=== PATIENT | male | born 1995 | race Caucasian/White ===

== ENCOUNTER 2019-04-10 12:26 | Emergency (ER) | payer OTHER ==
[~2019-04-10] VITALS: Ht 175.3 cm; Wt 95.4 kg
[2019-04-10 13:26] LABS: BASO # 0.1 10^3/uL (0.0-0.2); BASO % 0.8 % (0.0-1.0); EOS # 0.4 10^3/uL (0.0-0.5); EOS % 5.1 % (0.0-3.0); HEMATOCRIT 45.2 % (42.0-52.0); HEMOGLOBIN 15.5 g/dl (13.5-17.5); LYMPH # 1.6 10^3/uL (1.5-5.0); LYMPH % 20.1 % (24.0-44.0); MEAN CORPUSCULAR HEMOGLOBIN 30.3 pg (27.0-33.0); MEAN CORPUSCULAR HGB CONC 34.3 g/dl (32.0-36.5); MEAN CORPUSCULAR VOLUME 88.5 fl (80.0-96.0); MONO # 0.7 10^3/uL (0.0-0.8); MONO % 9.2 % (0.0-5.0); NEUTROPHILS # 5.1 10^3/uL (1.5-8.5); NEUTROPHILS % 64.4 % (36.0-66.0); PLATELET COUNT, AUTOMATED 293 10^3/uL (150-450); RED BLOOD COUNT 5.11 10^6/uL (4.30-6.10); WHITE BLOOD COUNT 7.9 10^3/uL (4.0-10.0)
[2019-04-10] MEDS ORDERED: KETOROLAC 30 MG/ML VIAL (J1885) IV ONE (13:30)
[2019-04-10] MEDS ORDERED: GI COCKTAIL 50ML BTL(HYOSCYAMINE/MAALOX/LIDOCAINE VISCOUS)(1:3:1) PO ONE (13:45)
[2019-04-10 13:48] LABS: ALBUMIN 4.1 GM/DL (3.2-5.2); BILIRUBIN,DIRECT 0.2 MG/DL (0.0-0.2); BILIRUBIN,TOTAL 0.7 MG/DL (0.2-1.0); TOTAL PROTEIN 7.6 GM/DL (6.4-8.2)
[2019-04-10] MEDS ORDERED: ISOVUE-370 76% 100ML VIAL (Q9967) As Ordered ONE (14:14)
--- NOTE | 2019-04-10 14:55 | REP ---
CT of the abdomen and pelvis with IV contrast, without bowel contrast for right abdominal pain: There are no comparisons. The visualized lung vivas are unremarkable except for dependent atelectasis. The hepatic parenchyma is homogeneous and unremarkable. The gallbladder, pancreas and spleen are unremarkable. The adrenals are unremarkable. The kidneys are unremarkable. The abdominal aorta is unremarkable. There is no periaortic adenopathy or mass. The mesentery and bowel are unremarkable. Pelvis: The appendix is unremarkable. The pelvic bowel loops are unremarkable. There is no ascites. There is no adenopathy. There are a couple of an normal-sized pericecal lymph nodes. Impression: Essentially negative CT of the abdomen as. The appendix is unremarkable. The gallbladder is unremarkable. There are no renal calculi. There is no hydronephrosis. There is no ascites, adenopathy or mass. A couple of normal-sized pericecal lymph nodes are identified incidentally. Electronically Signed by Deonte Gonsalez MD 04/10/2019 02:47 P
[2019-04-10] MEDS ORDERED: SUCRALFATE SUSP 1GM/10ML UD PO ONE (15:00)
[2019-04-10] MEDS ORDERED: PEPC1TAB5 PO (15:16)
[2019-04-10] MEDS ORDERED: CARA1TAB6 PO (15:16)
[2019-04-10 15:20] VITALS: BP 129/79
== END 2019-04-10 15:45 | disposition home or self-care (01) ==
LOC: M ED 12:26
DX: R10.11 Right upper quadrant pain (principal); R11.2 Nausea with vomiting, unspecified; Z79.899 Other long term (current) drug therapy; Z88.5 Allergy status to narcotic agent; F17.210 Nicotine dependence, cigarettes, uncomplicated
CPT/HCPCS: 74177; 80047; 80076; 83690; 85025; 96374; 99284; J1885; Q9967

== ENCOUNTER 2019-04-13 12:49 | Emergency (ER) | payer OTHER ==
[~2019-04-13] VITALS: Ht 175.3 cm; Wt 90.9 kg
[~2019-04-13 12:49] MED LIST: CARA1TAB6 PO; PEPC1TAB5 PO
[2019-04-13] MEDS ORDERED: NS 1,000 ML IV ONE (13:45)
[2019-04-13 13:55] LABS: BASO # 0.1 10^3/uL (0.0-0.2); BASO % 0.8 % (0.0-1.0); EOS # 0.4 10^3/uL (0.0-0.5); EOS % 4.7 % (0.0-3.0); HEMATOCRIT 41.4 % (42.0-52.0); HEMOGLOBIN 14.8 g/dl (13.5-17.5); LYMPH # 1.6 10^3/uL (1.5-5.0); LYMPH % 20.3 % (24.0-44.0); MEAN CORPUSCULAR HEMOGLOBIN 31.6 pg (27.0-33.0); MEAN CORPUSCULAR HGB CONC 35.7 g/dl (32.0-36.5); MEAN CORPUSCULAR VOLUME 88.3 fl (80.0-96.0); MONO # 0.9 10^3/uL (0.0-0.8); MONO % 11.6 % (0.0-5.0); NEUTROPHILS # 4.8 10^3/uL (1.5-8.5); NEUTROPHILS % 62.3 % (36.0-66.0); PLATELET COUNT, AUTOMATED 331 10^3/uL (150-450); RED BLOOD COUNT 4.69 10^6/uL (4.30-6.10); WHITE BLOOD COUNT 7.7 10^3/uL (4.0-10.0)
--- NOTE | 2019-04-13 16:23 | REP ---
HISTORY: Right upper quadrant pain. COMPARISON: None. Prior CT scan 04/10/2019 showed an unremarkable appearing gallbladder. FINDINGS: Multiple ultrasonographic images of the liver show the hepatic parenchymal echo pattern to be within normal limits. There are no masses. There is no intrahepatic or extrahepatic ductal dilatation, the common bile duct measures 3 mm. Multiple ultrasonographic images of the gallbladder show no abnormalities. There are no choleliths. There is no pericholecystic edema or gallbladder wall thickening. The imaged portion of the pancreas and right kidney are unremarkable. There is no free fluid in the right upper quadrant. IMPRESSION: Right upper quadrant ultrasound is within normal limits. Electronically Signed by Jay Lo DO 04/13/2019 04:44 P
[2019-04-13 16:31] LABS: BILIRUBIN,DIRECT 0.2 MG/DL (0.0-0.2); BILIRUBIN,TOTAL 0.6 MG/DL (0.2-1.0); TOTAL PROTEIN 7.5 GM/DL (6.4-8.2)
[2019-04-13] MEDS ORDERED: KETOROLAC 30 MG/ML VIAL (J1885) IV ONE (16:45)
--- NOTE | 2019-04-13 16:45 | REP ---
CHEST: Two views. There is no evidence of acute infiltrate. No pleural effusion is seen. The heart is normal in size. The mediastinal silhouette is unremarkable. The visualized osseous structures are intact. IMPRESSION: No acute pulmonary disease. Electronically Signed by Deonte Omer MD 04/13/2019 06:07 P
[2019-04-13] MEDS ORDERED: GI COCKTAIL 50ML BTL(HYOSCYAMINE/MAALOX/LIDOCAINE VISCOUS)(1:3:1) PO ONE (17:15)
[2019-04-13 17:22] VITALS: BP 136/94
[2019-04-13] MEDS ORDERED: PANTOPRAZOLE 40MG INJ (PROTONIX) (C9113) IV ONE (17:30)
[2019-04-13] MEDS ORDERED: PANTOPRAZOLE 40MG TAB (PROTONIX) PO ONE (17:45)
== END 2019-04-13 17:51 | disposition home or self-care (01) ==
LOC: M ED 12:49
DX: K29.70 Gastritis, unspecified, without bleeding (principal); R10.11 Right upper quadrant pain; F17.218 Nicotine dependence, cigarettes, with other nicotine-induced disorders
CPT/HCPCS: 36415; 71046; 76705; 80047; 80076; 81001; 83690; 85025; 96361; 96374; 99284; J1885